=== PATIENT | female | born 1985 | race Caucasian/White ===

== ENCOUNTER 2017-02-26 22:19 | Emergency (ER) | payer OTHER ==
[~2017-02-26] VITALS: Ht 170.2 cm; Wt 61.2 kg
[~2017-02-26 22:19] MED LIST: OXYC1SOL5 PO; PREN0.01 PO; RANI150 PO
[2017-02-26 22:23] VITALS: BP 139/79; PULSE 118; RESP 16; TEMP 97.4; O2SAT 98
[2017-02-26 22:54] LABS: BLOOD, URINE LARGE (NEG); GLUCOSE,URINE NEG (NEG); KETONE, URINE NEG (NEG); NITRITE,URINE NEG (NEG)
--- NOTE | 2017-02-26 22:54 | PD ---
HPI Chief Complaint: Complaint Time Seen by Provider: 22:42 Travel History International Travel<30 days: No Contact w/Intl Traveler<30days: No Traveled to known affect area: No History of Present Illness HPI The patient is a 31-year-old female that complains of dysuria, frequency and urgency for a day and a half. She denies any fever. She does have a primary left flank pain but also has some right flank pain. The pressure sensation is still across both sides of the suprapubic area. She states there is no possibility of . She denies any fever. PFSH Past Medical History Medical History: Denies Significant Hx Diminished Hearing: No Influenza Vaccination: Yes ?: Not LMP: 02/12/17 : 1 Para: 1 Past Surgical History Other Surgery: Yes (LEFT KNEE MOLE REMOVAL , ANAL FISSURE REPAIR) Social History Alcohol Use: Yes (VERY RARELY) Tobacco Use: No Substance Use: No Allergies-Medications (Allergen,Severity, Reaction): Coded Allergies: No Known Allergies (Unverified , 09/01/12) Reported Meds & Prescriptions Reported Meds & Active Scripts Active Pyridium (Phenazopyridine HCl) 100 Mg Tab 100 Mg PO Q8H PRN Macrobid (Nitrofurantoin Monoh/Nitrofur Macro) 100 Mg Cap 100 Mg PO BID 10 Days Review of Systems Except as stated in HPI: all other systems reviewed are Neg Physical Exam Narrative GENERAL: Well-nourished, well-developed patient in slight apparent distress with her suprapubic discomfort and urinary symptoms. Her vital signs show heart rate of 118 but otherwise normal. SKIN: Focused skin assessment warm/dry. HEAD: Normocephalic. EYES: No scleral icterus. No injection or drainage. NECK: Supple, trachea midline. No JVD or lymphadenopathy. CARDIOVASCULAR: Regular rate and rhythm without murmurs, gallops, or rubs. RESPIRATORY: Breath sounds equal bilaterally. No accessory muscle use. GASTROINTESTINAL: Abdomen soft, nondistended. There is tenderness over both flanks, left greater than right. There is tenderness over the suprapubic area bilaterally. No guarding or rebound is present. MUSCULOSKELETAL: No cyanosis, or edema. BACK: Nontender without obvious deformity. No CVA tenderness. Data Data Last Documented VS Vital Signs Date Time Temp Pulse Resp B/P (MAP) Pulse Ox O2 Delivery O2 Flow Rate FiO2 9/25/17 22:39 16 02/26/17 22:23 97.4 118 139/79 (99) 98 Orders Orders Urinalysis - C+S If Indicated (02/26/17 22:42) Ondansetron Odt (Zofran Odt) (02/26/17 23:00) Nitrofurantoin Monohyd Macrocr (Macrobid (02/26/17 23:00) Phenazopyridine (Pyridium) (02/26/17 23:00) Urine Culture (02/26/17 22:45) Labs Laboratory Tests Test 02/26/17 22:45 Urine Color YELLOW Urine Turbidity MOD Urine pH 6.0 Urine Specific [place] 1.013 Urine Protein NEG mg/dL Urine Glucose (UA) NEG mg/dL Urine Ketones NEG mg/dL Urine Occult Blood LARGE Urine Nitrite NEG Urine Bilirubin NEG Urine Leukocyte Esterase MOD Urine RBC 100-200 /hpf Urine WBC 15-19 /hpf Urine WBC Clumps FEW Urine Squamous Epithelial Cells 0-5 /hpf Urine Bacteria OCC /hpf Microscopic Urinalysis Comment CULTURE INDICATED MDM Medical Decision Making Medical Screen Exam Complete: Yes Emergency Medical Condition: Yes Medical Record Reviewed: Yes Interpretation(s) The urine shows moderate turbidity, large occult blood, 100-200 red cells with 15-19 white cells and few white cell clumping's and occasional bacteria and culture is indicated. Differential Diagnosis Cystitis, pyelonephritis, urinary stone Narrative Course The patient appears to have both cystitis and pyelonephritis. She is to increase her liquid intake and is given Macrobid and Pyridium. She is to follow -up with her primary care physician this week or early next week. Diagnosis Primary Impression: Pyelonephritis Additional Impression: Cystitis Additional Instructions: Increase liquid intake, it is important to establish good urinary flow across your kidneys. The antibiotic is one tablet twice daily for 10 days. The Pyridium turns your urine orange and it is for the urinary discomfort. Follow- up with your primary care physician this week or early next week. Med/Other Pt SpecificInfo: Prescription(s) given Scripts Phenazopyridine (Pyridium) 100 Mg Tab 100 MG PO Q8H Y for DYSURIA, #21 TAB 0 Refills Prov: Tano Metzger MD 02/26/17 Nitrofurantoin Monohydrate Macrocrystals (Macrobid) 100 Mg Cap 100 MG PO BID for Infection for 10 Days, #20 CAP 0 Refills Prov: Tano Metzger MD 02/26/17 Disposition: 01 DISCHARGE HOME Condition: Stable Tano Metzger MD Feb 26, 2017 22:54
[2017-02-26] MEDS ORDERED: ONDANSETRON ODT 4 MG TAB PO ONE (23:00)
[2017-02-26] MEDS ORDERED: PHENAZOPYRIDINE HCL 200 MG TAB PO ONE (23:00)
[2017-02-26] MEDS ORDERED: NITROFURANTOIN MONOHYD MACROCR 100 MG CAP PO ONE (23:00)
[2017-02-26] MEDS ORDERED: MACR100C2 PO (23:02)
[2017-02-26] MEDS ORDERED: PHEN0.4T PO (23:02)
[2017-02-26 23:09] LABS: RBC, URINE 100-200 /hpf (0-3); URINE COLOR YELLOW (YELLW/STRAW)
[2017-02-26 23:10] LABS: SQUAMOUS EPITHELIAL CELL URINE 0-5 /hpf (0-5)
[2017-02-26 23:11] LABS: WBC, URINE 15-19 /hpf (0-5)
[2017-02-26 23:12] LABS: COMMENT (UR) CULTURE INDICATED; CULTURE IF INDICATED CULTURE INDICATED
[2017-02-26 23:13] LABS: BACTERIA, URINE OCC /hpf
[2017-02-26] MEDS ORDERED: KETOROLAC TROMETHAMINE 60 MG/2 ML (IM) VIAL IM ONE (23:30)
[2017-02-26 23:45] VITALS: BP 136/78
== END 2017-02-26 23:49 | disposition home or self-care (01) ==
LOC: PHED 22:19
DX: N12 Tubulo-interstitial nephritis, not specified as acute or chronic (principal); N30.90 Cystitis, unspecified without hematuria
CPT/HCPCS: 81001; 87086; 96372; 99284; J1885